=== PATIENT | female | born 1980 | race Caucasian/White ===

== ENCOUNTER → 2021-03-05 | Outpatient (CLI) | payer OTHER ==
[~2021-03-05] MED LIST: BENICAR HCT 401 EACH PO; METOPROLOL TART25 MG PO; MULTIVITAMINS1 EAC7 PO; ZOFRAN ODT4 MG PO
== END ==
LOC: M.LAB 12:38
PROVIDERS: ATTEND Podiatrist
DX: Z01.812 Encounter for preprocedural laboratory examination (principal); Z20.822 Contact with and (suspected) exposure to COVID-19